=== PATIENT | female | born 1975 ===

== ENCOUNTER 2017-05-21 18:18 | Emergency (ER) | payer SELFPAY ==
[2017-05-21 19:29] VITALS: BMI 25.0
[2017-05-21] MEDS ORDERED: Lactated Ringer's 1,000 ML IV SCH ×2 (19:30→22:00)
[2017-05-21 20:00] LABS: BASO % 0.3 % (0.0-2.0); EOS # 0.1 K/uL (0.0-0.7); EOS % 0.8 % (0.0-4.0); HEMOGLOBIN 10.7 g/dL (12.0-16.0); LYMPH # 2.4 K/uL (1.0-4.3); LYMPH % 17.7 % (20.0-40.0); MEAN CELL VOLUME 90.3 fl (81.0-99.0); MEAN CORPUSCULAR HGB CONC 33.2 g/dL (33.0-37.0); MEAN PLATELET VOLUME 8.5 fl (7.2-11.7); MONO # 0.9 K/uL (0.0-0.8); MONO % 6.4 % (0.0-10.0); NEUT # 10.3 K/uL (1.8-7.0); NEUT % 74.8 % (50.0-75.0); RBC 3.57 Mil/uL (3.80-5.20); RED CELL DISTRIBUTION WIDTH 14.4 % (11.5-14.5); WHITE BLOOD COUNT 13.8 K/uL (4.8-10.8)
[2017-05-21 20:06] LABS: SQUAMOUS EPITHIAL 6 /hpf (0-5); URINE BACTERIA RARE (<OCC); URINE BILIRUBIN NEGATIVE (NEGATIVE); URINE BLOOD MODERATE (NEGATIVE); URINE CLARITY CLOUDY (Clear); URINE COLOR YELLOW (YELLOW); URINE GLUCOSE (UA) NEG (Normal); URINE LEUKOCYTE ESTERASE SMALL Leu/uL (Negative); URINE NITRATE NEGATIVE (NEGATIVE); URINE PROTEIN 30 mg/dL (NEGATIVE); URINE UROBILINOGEN 0.2-1.0 mg/dL (0.2-1.0)
[2017-05-21 20:08] LABS: ALBUMIN 3.2 g/dL (3.5-5.0); ALT/SGPT 19 U/L (9-52); AST/SGOT 19 U/L (14-36); BLOOD UREA NITROGEN 4 mg/dl (7-17); CALCIUM 8.5 mg/dL (8.4-10.2); GFR AFRICAN-AMERICAN > 60; GFR NON-AFRICAN AMERICAN > 60
--- NOTE | 2017-05-21 21:28 | US ---
EXAM: US Uterus, Limited EXAM DATE/TIME: 05/21/2017 8:09 PM CLINICAL HISTORY: 41 years old, female; Signs and symptoms; Lmp or gestational age (in weeks): 09/17/16; Other: Decrease movement; ; Additional info: Decreased movement. 35 weeks . TECHNIQUE: Real-time ultrasound of the maternal uterus (limited) with image documentation. COMPARISON: No relevant prior studies available. FINDINGS: Single fetus identified, cephalic position. Calculated sonographic gestational age is 34 weeks, 4 days. Estimated delivery date is 06/28/2017. heart motion detected, at 146 beats/min. The technologist noted that movement was also detected during the exam Limited assessment of the anatomy on this exam. Fundal and posterior location of the placenta. No evidence of placenta previa. CLARK is 13.4 cm, which is between the 5th and 95th percentile for the calculated gestational age. Cervical length is 3.8 cm (normal greater than 3 cm), measured transabdominally. IMPRESSION: 34 week, 4 day intrauterine with heart motion. No acute abnormality identified on this limited exam. See above for remaining findings.
--- NOTE | 2017-05-22 08:03 | OBHP ---
Datetime: 05/21/2017 19:08 IP Adm Impression: , intrauterine ; No Active Labor IP Admit Plan: Observation/Evaluation; Discharge home Admit Comment, IP Provider: 41 y/o F around 31 weeks GA, ALEXIS 07/23/17 according to 7weeks US, c /o decreased movements since yesterday night. Pt also reports increased bilateral lower leg yovana ma. Pt came [place] [facility] 2 days ago, after 12 hours long airflight during which she did not drink adequate amount of fluids. Pt also reports some mild intermittent cramping on abdomen. No VB or LOF. has been uncomplicated according to pt. incomplete pre-nelli records. Pt denies headache, dizziness, visual disturbances, CP, SOB, N/V, urinary complaints or pruritus. NKDA Medications: PO Iron supplement. PNC Clinic: in [facility]. PN Records: unavailable. OBHx: . All pregnancies were delivered at full term, _38 weeks GA. -1st was delivered by . -2nd delivery was a due to increased weight _4.5 Kg. -3rd was a repeat . PMHx: denied PSHx: 2x C-sections. FHx: mother with HTN. No congenital malformation or syndrome in family. SHx: No tobacco, alcohol or rec drugs. Lives with and feels safe at home. A/P 41 y/o with IUP _31 weeks GA, incomplete pre- records, with decreased movements. -IV fluids. -CBC, CMP and U/A -TVUS Case discussed with Dr Hutchins, OB technical professional. Mason PGY-1. Addendum: CBC showed mild anemia, pt asymptomatic. CMP and U/A were unremarkable. Pt declined TVUS, pelvic exam performed: cervix closed/thick/high. --OB limited US read by [employer] showed sonographic GA of 34.4 weeks GA, ALEXIS 06/28/17, FHR 146, CLARK 13.4 cm, cervical lenght of 3.8-WNL. -Pt will received another bolus of IV LR and will discharge home. Case discussed with Dr Hutchins, OB technical professional. Mason PGY-1 Addendum: I saw and examined patient up presentation and follow-up. Gastroenteritis. No evidence of labor at this time. Patient observed at OB ED. Maternal well-being and well-being reassuring at this time. Patient reports feeling better after observation and IV hydration. Patient discharged fide e with labor precautions. Patient will follow up with clinic as scheduled. Palpation question s answered. Abdomen - PN: Normal Back - PN: Normal Lungs - PN: Normal Heart - PN: Normal Neurologic - PN: Normal HEENT - PN: Normal General - PN: Normal FHR - Baseline A Provider: 131 Comments, ACOG Physical Exam: Ext: non-tender, no cyanosis. 1+ edema on bilateral foot and lower leg . Fuad's sign negative bilaterally. IP Hx Assessment: No Care Records EGA AdmitDate IP: 31.0 Vital Signs Provider: Reviewed IP Chief Complaint: Decreased movement; Maternal discomfort NICHD Variability Prov Fetus A: Moderate 6-25bpm NICHD Accel Fetus A IP Provider: [id number] FHR Category Provider Fetus A: Category I
[2017-05-22 09:05] VITALS: BP 102/57; PULSE 85; RESP 18; TEMP 98.3; O2SAT 99
== END 2017-05-21 23:10 | disposition home or self-care (01) ==
LOC: H.EROB2 18:18 → H.EROB 19:04 → H.EROB2 23:10
DX: O36.8131 Decreased fetal movements, third trimester, fetus 1 (principal); Z3A.34 34 weeks gestation of pregnancy; Z87.59 Personal history of other complications of pregnancy, childbirth and the puerperium; O47.03 False labor before 37 completed weeks of gestation, third trimester
CPT/HCPCS: 76815; 80053; 81003; 85025; 96360; 96361; 99284; J7120